=== PATIENT | female | born 1945 | race Caucasian/White ===

== ENCOUNTER 2019-04-16 13:41 | Emergency (ER) | payer MEDICARE ==
[~2019-04-16] VITALS: Ht 160 cm; Wt 51.7 kg
[2019-04-16 14:31] LABS: BASO % 0.7 % (0.0-1.0); EOS # 0.2 10*3/uL (0.0-0.4); EOS % 3.1 % (1.0-4.0); HEMATOCRIT 30.5 % (37.0-47.0); HEMOGLOBIN 9.5 g/dl (12.0-16.0); LYMPH # 1.3 10*3/uL (1.3-4.4); MEAN CELL VOLUME 94.4 fl (81.0-99.0); MEAN CORPUSCULAR HGB 29.4 pg (27.0-31.0); MEAN CORPUSCULAR HGB CONC 31.1 g/dl (33.0-37.0); MEAN PLATELET VOLUME 9.2 fl (9.6-12.3); MONO # 0.9 10*3/uL (0.1-1.0); MONO % 15.3 % (3.0-9.0); NEUT # 3.6 10*3/uL (2.3-7.9); NEUT % 59.4 % (47.0-73.0); PLATELET COUNT AUTOMATED 254 10*3/uL (130-400); RED BLOOD COUNT 3.23 10*6/uL (4.10-5.10); RED CELL DISTRI WIDTH 15.3 % (0-14.5); WHITE BLOOD COUNT 6.1 10*3/uL (4.8-10.8)
[2019-04-16 14:41] LABS: ACT PARTIAL THROMBO TIME 24.8 SECONDS (20.0-32.1); INTERNATIONAL NORM RATIO 0.9 (2.0-3.5)
[2019-04-16 14:50] LABS: ALBUMIN 2.9 gm/dl (3.1-4.5); ALKALINE PHOSPHATASE 121 U/L (45-117); BUN 22 mg/dl (7-24); CHLORIDE 104 mmol/L (98-107); CPK 101 U/L (26-192); CREATININE 0.61 mg/dL (0.55-1.02); POTASSIUM 3.5 mmol/L (3.5-5.1); SGOT/AST 39 IU/L (3-35); SGPT/ALT 20 U/L (12-78); SODIUM 137 mmol/L (136-145); TOTAL PROTEIN 6.9 gm/dL (6.4-8.2)
[2019-04-16 14:55] LABS: CKMB 5.2 ng/ml (0.5-3.6); TROPONIN I < 0.015 ng/ml (<0.045)
== END 2019-04-16 15:45 | disposition short-term general hospital (02) ==
LOC: ED 13:41
PROVIDERS: Emergency Medicine
DX: S06.5X0A Traumatic subdural hemorrhage without loss of consciousness, initial encounter (principal); W19.XXXA Unspecified fall, initial encounter; Y93.89 Activity, other specified; Y92.093 Driveway of other non-institutional residence as the place of occurrence of the external cause; Y99.8 Other external cause status

== ENCOUNTER → 2023-03-01 | Outpatient (CLI) | payer MEDICARE, BC | END | disposition home or self-care (01) | LOC: LAB 14:40 | PROVIDERS: ATTEND Emergency Medicine | DX: M33.20 Polymyositis, organ involvement unspecified (principal) ==

== ENCOUNTER 2023-12-29 11:24 | Emergency (ER) | payer MEDICARE, BC ==
[~2023-12-29] VITALS: Wt 50.8 kg
== END 2023-12-29 14:05 | disposition home or self-care (01) ==
LOC: ED 11:24
DX: S82.61XA Displaced fracture of lateral malleolus of right fibula, initial encounter for closed fracture (principal); S09.8XXA Other specified injuries of head, initial encounter; S51.012A Laceration without foreign body of left elbow, initial encounter; I48.91 Unspecified atrial fibrillation; R42 Dizziness and giddiness; W01.10XA Fall on same level from slipping, tripping and stumbling with subsequent striking against unspecified object, initial encounter; Y93.89 Activity, other specified; Y92.002 Bathroom of unspecified non-institutional (private) residence as the place of occurrence of the external cause; Y99.8 Other external cause status